=== PATIENT | male | born 1960 | race Caucasian/White ===

== ENCOUNTER 2024-01-31 09:17 | Day surgery (SDC) | payer SELFPAY ==
--- NOTE | 2024-01-30 19:25 | ANES.PREOP_ITS ---
General Info Date of Service Date Performed: 01/31/24 Height: 5 ft 11.5 in Weight: 99.9 kg Body Mass Index (BMI): 30.2 Surgical Procedure: Operation Date: 01/31/24 11:20 Proposed Procedure Side Surgeon p Colonoscopy Saulo Sierra MD Meds Allergies and Home Medications Allergies Allergy/AdvReac Type Severity Reaction Status Date / Time No Known Allergies Allergy Verified 01/31/24 09:32 Home Medication Medication Instructions Recorded Unknown [No Known Home Meds] 12/03/20 Current Visit Medications: Current Medications Generic Name Dose Route Start Last Admin Trade Name Freq PRN Reason Stop Dose Admin Ringer's Solution 1,000 mls @ 80 mls/hr 01/31/24 06:00 IV 02/29/24 23:59 INFUSION ALVIN IV Miscellaneous Supplies 1 each 01/31/24 06:00 Iv Access IV 02/29/24 23:59 DIRECTED ALVIN Sodium Chloride 0 ml 01/31/24 06:00 Normal Saline Flush 10 Ml Syr IV 02/29/24 23:59 PRN PRN Sodium Chloride 0 ml 01/31/24 06:00 Normal Saline 10 Ml Vial IJ 02/29/24 23:59 DIRECTED PRN Sterile Water 0 ml 01/31/24 06:00 Water,Injection,Sterile 10 Ml Vial IJ 02/29/24 23:59 DIRECTED PRN PFSH Active Problems Active Problems: Problem Status Onset Code Tubulovillous adenoma ~2012 D36.9 Cervical kyphosis M40.202 Hyperlipidemia, unspecified 07/02/12 E78.5 Medical History Medical History Adenoma of large intestine (04/05/13) 03/2013 colonoscopy (tubular adenoma) Surgical History Surgical History H/O colonoscopy with polypectomy Status post Achilles tendon repair (~2007) [facility] Tobacco Smoking/Tobacco Use Status: Never Alcohol Alcohol Intake: current Alcohol intake frequency: 3 or more drinks per day Alcohol type: beer and hard liquor Details: 3-5 mixed drinks with liquor/ day Substance Use Substance use: Occasionally Substance use type: marijuana Vital Signs and Lab Results Vital Signs Most Recent Vital Signs in EMR: Temp Pulse Resp BP Pulse Ox 36 C L 72 16 126/85 99 01/31/24 09:19 01/31/24 09:19 01/31/24 09:19 01/31/24 09:19 01/31/24 09:19 Lab Results Blood Type / Crossmatch: No Data to Display Complete Blood Count: No Data to Display Complete Metabolic Panel: No Data to Display Liver Function Panel: No Data to Display Coagulation Panel: No Data to Display Cardiac Panel: No Data to Display Arterial Blood Gas: No Data to Display Venous Blood Gas: No Data to Display Pancreas Panel: No Data to Display Thyroid Panel: No Data to Display Infectious Disease: No Data to Display Blood Cultures: No Data to Display Toxicology Panel: No Data to Display Anesthesia Assessment and Plan Anesthesia History Personal History: No History of Anesthesia Complications Family History: No Family History of Anesthesia Complications Exercise Tolerance Exercise Tolerance: Metabolic Equivalents>4 Pertinent Negatives Pertinent Negatives: No Symptoms of GERD (Hx, states self-resolved around 10 years ago), No Major Cardiovascular Symptoms or Complaints, No Major Pulmonary Symptoms or Complaints and No History of CVA/TIA Cardiac & Pulmonary Exam Cardiac Exam: Normal S1/S2 Heart Sounds Pulmonary Exam: Clear Bilateral Breath Sounds Implantable Cardiac Device Does patient have a Pacemaker or an ICD?: No Airway Exam Known Difficult Airway: No Mallampati Class: 3 Mouth Opening: Narrow (< 3cm) Thyromental Distance: Greater than 3 cm Neck Range of Motion: Full ROM Neck Circumference: Normal Teeth Condition: Normal Dentition and Generalized Poor Dentition ASA Classification ASA Score: ASA 2 Emergency Case?: No NPO Status NPO Status: NPO Clears >2 hours, Solids >8 hours Anesthesia Plan Resuscitation Status: Full Code Anesthesia Technique: General Anesthesia Airway Planned: Natural Airway Monitors Used: Standard Monitors Preoperative Comments:: 63 yo male for colo. Sig PMHX: cervical kyphosis. never smoker, daily EtOH (3-5 drinks/day weekdays). occ cannabis.
--- NOTE | 2024-01-30 19:49 | W.PM.DSUDISC ---
Date of service: 01/31/24 Time of Service: 11:56 Discharge Plan Disposition Patient Disposition: Home Condition: Good Discharge Details Reason For Visit: screening colonoscopy Attending Provider: Saulo Sierra Primary Care Provider: Sharmila Hernandez Home Meds and New Rx's Prescriptions: No Action No Known Home Meds Discharge Instructions Instructions: Colon polyps, Diverticulosis, High-fiber diet Additional Instructions: Henri, we were able to complete your colonoscopy today without any difficulty. Your prep was excellent and I could see everything fine. I did find and remove 3 polyps today. All were quite small. These will be sent off for testing, and once I know the nature of the polyps, I will be in touch with recommendations for the timing of your next colonoscopy. Incidentally, you also have some diverticulosis as well. Diverticula are little weak spots in the muscular part of the colon wall. They can get infected or inflamed. If that happens, we call it diverticulitis. It is typically experienced as sharp pain, usually on the left lower side of the abdomen. It is often times accompanied by fevers and not feeling well. Most of the time patients are treated with antibiotics during these episodes. I hope you are is never bother you. I have attached some general information here about colorectal polyps, as well as diverticulosis. If you have any questions in the meantime, please do not hesitate to call. 1. If tolerated, consume a soft, low fiber diet for 1-2 days. 2[address] Do not drive, drink alcohol, operate machinery, make critical decisions, or do activities that require coordination or balance for 24 hours. 3. Because air was put into your colon during the procedure, expelling air from your rectum (passing gas or farting) is normal. 4. You may not have a bowel movement for 1-3 days because of the colonoscopy prep. This is normal. 5. Go directly to the emergency room if you notice any of the following: Develop chills (warm to touch), or if you have a thermometer and your temperature is above 101 Difficulty breathing or difficultly swallowing Persistent vomiting Severe abdominal pain, other than gas cramps Severe chest pain Black, tarry stools Any bleeding ? exceeding one tablespoon 6. Call your physician if the site where your intravenous was started becomes red, swollen, painful, and warm to touch. 7. Your physician has reviewed your pre-procedure medications. Please continue to take those medications as previously ordered. You will be given specific information/education regarding any changes to your medications before leaving. Activity:: Activity as Tolerated Diet:: As Tolerated Discharge Orders Discharge Orders: Discharge Order (Routine); Ordered 01/30/24 Ordered By: Saulo Sierra DS: Diagnosis Discharge Diagnosis (1) Encounter for screening colonoscopy: Status: Acute Asessment and Plan: Follow-up on polypectomy results
--- NOTE | 2024-01-30 19:50 | W.COLOREPORT ---
Date of service: 01/31/24 Time of Service: 11:58 Colonoscopy Report Date of procedure: 01/31/24 Pre-op diagnosis general: screening colonoscopy Post-op diagnosis procedure note: other (Diverticulosis, colon polyps) Procedure: colonoscopy with polypectomy Surgeon: Saulo Sierra Anesthesia Type: General:No Airway Estimated blood loss (mL): 5 Pathology: other (0.25 cm cecal polyp, 0.25 cm polyp at 30 cm, 0.25 cm polyp at 20 cm) Complications: None Disposition: same day Indications: Henri is a 63 year old man with a history of adenomatous polyps who needs his next screening colonsocopy Prep: Miralax/Dulcolax Procedure Start Time: 11:22 Procedure End Time: 11:42 Retraction Time: 16 Findings: Sigmoid diverticulosis, 0.25 cm cecal polyp, 0.25 cm polyp at 30 cm, 0.25 cm polyp at 20 cm Procedure Description: After the induction of anesthesia, and with the patient in left lateral decubitus position, I began by performing an external anorectal exam.? Perineum and skin were normal, as was the anal verge.? There was no evidence of external hemorrhoids.? Next, I performed a digital rectal exam.? I did not appreciate any abnormal findings.? Next, I advanced a colonoscope into the rectal vault.? I performed retroflexion.? This appeared normal.? Using insufflation, I then advanced the colonoscope beyond the rectal folds and into the sigmoid colon before advancing towards the cecum.? In the cecum, just a few centimeters away from the order this of the appendix, was a 0.25 cm flat polyp. I removed this with cold forceps without any significant bleeding. The scope was noted to be in the cecum by identification of the ileocecal valve and appendiceal orifice.? I then began withdrawing the colonoscope using repeated irrigation as necessary for full evaluation of the colonic mucosa. Around 30 cm from the anal verge I identified a 0.25 cm polyp. ?It appeared flat in character. ?I was able to remove this with a cold forcep polypectomy. ?I examined the site, and there was minimal bleeding. I found another 0.25 cm polyp at 20 cm from the anus. This was also flat, and also removed with cold forceps. Once the scope was withdrawn to the level of the rectum, great care was taken to examine portions of the rectal folds.? Finally, the scope was withdrawn and the patient was brought to the same-day surgery recovery unit as the anesthetic wore off. ?The findings and instructions were shared with the patient prior to discharge. [place] Bowel Prep [place] Bowel Prep Right Colon: 3 Left Colon: 3 Transverse Colon: 3 Total Score: 9
[2024-01-31 09:19] VITALS: BP 126/85; PULSE 72; RESP 16; TEMP 36; O2SAT 99
[2024-01-31] MEDS: Lactated Ringers 1,000 ML 80 ML IV (09:53)
[2024-01-31 10:53] VITALS: BMI 30.2
--- NOTE | 2024-01-31 11:28 | BOWEL_PTH ---
PATIENT: Henri Upton LOC: [facility] U#:[id number] AGE/SX: 63/M ROOM: RE01/31/[address]: Saulo Sierra MD : 1960 BED: DIS: 01/31/2024 SPEC #: [id number] RECD: 01/31/24 13:06 STATUS: LITZY REJosy #: [id number] ESHA: 01/31/24 11:[address]: Saulo Sierra DEPT: Surgical Specimen RECD BY: Oumou Castaneda ENTERED: 01/31/24 13:08 SP TYPE: Bowel OTHR DR: Sharmila Hernandez DO Tissues: 1 - BIOPSY BOWEL 2 - BIOPSY BOWEL 3 - BIOPSY BOWEL Procedures: GROSS AND MICRO LEVEL 4 Comments: [id number]
[2024-01-31 11:46] VITALS: BP 116/80; PULSE 71; RESP 16; TEMP 36.1; O2SAT 95
[2024-01-31 12:17] VITALS: BP 121/81; PULSE 78; RESP 16; TEMP 36.1; O2SAT 98
--- NOTE | 2024-01-31 12:24 | W.ANESPOSTOP ---
Postoperative Evaluation Date, Time and Location Date Performed: 01/31/24 Time Performed: 12:24 Patient Location: Day Surgery Unit Vital Signs Most Recent Imported Vital Signs: Most Recent Vital Signs Temp Pulse Resp BP Pulse Ox 36.1 C L 78 16 121/81 98 01/31/24 12:17 01/31/24 12:17 01/31/24 12:17 01/31/24 12:17 01/31/24 12:17 Pain Score Most Recent Pain Score: Most Recent Pain Score Pain Level 0 01/31/24 12:17 Assessment Mental Status: Awake (Alert & Oriented to Patient Baseline) Airway and Respiratory Function: Patent airway with normal (patient baseline) respiratory exam Cardiovascular Function: Hemodynamically Stable Hydration Status: Adequately Hydrated Nausea & Vomiting: No Nausea or Vomiting Pain: Pt. Denies Any Pain Peripheral Nerve Block: Patient did not receive a nerve block
== END 2024-01-31 12:30 | disposition home or self-care (01) ==
LOC: SUR 09:18
PROVIDERS: PCP Student in an Organized Health Care Education/Training Program; Visit Provider Surgery
PROC: 0DJD8ZZ Inspection of Lower Intestinal Tract, Via Natural or Artificial Opening Endoscopic (ICD-10-PCS; CPT 45378; principal; 2024-01-31 11:15)
DX: Z12.11 Encounter for screening for malignant neoplasm of colon (principal); D12.0 Benign neoplasm of cecum
CPT/HCPCS: 45380; 88305; J2704

== ENCOUNTER 2024-03-29 20:48 | Emergency (ER) | payer SELFPAY ==
[2024-03-29] VITALS (17 sets, daily range): BP systolic 123–174; BP diastolic 78–103; PULSE 75–104; RESP 16–18; TEMP 36.6–36.7; O2SAT 91–97
--- NOTE | 2024-03-29 20:30 | RT.EKG_ITS ---
APPROVED REPORT Exam: Resting ECG Reason for Exam: Syncope Patient Location: E HR:90 bpm ECG Measurements Heart Rate 90 AXIS LA 145 P 67 QRSd 98 QRS 74 QT 356 T 40 QTc 436 Conclusion Sinus rhythm...normal P axis, V-rate 60- 99 Probable left atrial enlargement...P >50mS, <-0.10mV V1 sinus rhythm, normal axis, normal intervals, non ischemic
--- NOTE | 2024-03-29 20:45 | DI.RAD_ITS ---
Exam(s) XR PORTABLE CHEST AP EXAM: XR PORTABLE CHEST AP CLINICAL HISTORY: Syncope, R/O Aspiration. TECHNIQUE: 2D digital imaging was performed. COMPARISON: CR CHEST 2 VIEWS PA,LAT from 06/04/2015 FINDINGS: Single AP portable view. Heart size is upper normal. The mediastinum is not widened. Lungs are clear. No infiltrates nor obvious pleural effusions. IMPRESSION: No acute pulmonary findings on this single AP portable view of the chest. I note this patient had a left lung pneumonia in May 2015. Lungs are presently clear. DATA REPOSITORY: RADIATION DOSE DELIVERED:
--- NOTE | 2024-03-29 20:57 | W.ED.GENAD ---
Discharge Plan Disposition Patient Disposition: Home Condition: Stable Discharge Details Clinical Impression: Syncope and collapse Primary Care Provider: Unknown,Unknown ED Provider: Brittney Giraldo Home Meds and New Rx's Prescriptions: No Action No Known Home Meds Discharge Instructions Instructions: Syncope (Fainting) (DC) Additional Instructions: No evidence of heart attack today, no pneumonia. Please keep yourself hydrated. Return to the ER for any worsening dizziness, headache, blurry vision chest pain shortness of breath vomiting or any concerns. Follow up with primary care provider in 3-5 days. Return to ED sooner if any worsening or concerns. Referrals: Primary Care Provider [Outside] - 3 days HPI General Mode of arrival: EMS. Date/Time Provider Initiated Documentation: 03/29/24 20:56. Limitations to Documentation: no limitations. Information obtained by: patient, EMS, RN notes reviewed and old records reviewed. HPI Narrative: 64-year-old male presents to the ER via EMS with a chief complaint of syncopal episode which was witnessed while at a restaurant. Patient was eating pizza after having a few drinks and having some marijuana Gummies began vomiting during the syncopal episode. Patient denies any chest pain upon arrival he was alert and oriented x 4. He does have emesis noted on him. He denies any complaints, he reports that he had been out in the sun all day and was dehydrated and not drinking enough fluids. No significant past medical history. Related Data Home Medications ?Medication ?Instructions ?Recorded ?Confirmed Unknown [No Known Home Meds] 12/03/20 03/29/24 Allergies Allergy/AdvReac Type Severity Reaction Status Date / Time No Known Allergies Allergy Verified 03/29/24 20:57 General Stated Complaint: [id number] SHA: 3 Review of Systems All systems reviewed & are unremarkable except as noted in HPI and below Cardiovascular Cardiovascular: Reports syncope Gastrointestinal Gastrointestinal: Reports as per HPI and Reports vomiting Neurologic Neurologic: Reports syncope Exam Narrative Exam Narrative: Constitutional: Alert and oriented x3. Appears stated age. Normal body habitus. Head: Normocephalic, no trauma. Eyes: Pupils PERRL, Red reflex noted, EOM's intact. Eyelids symmetrical without lesions, discharge, or swelling. ENT: Bilateral TM's WNL, External ear normal to inspection, no mastoid TTP, swelling, or erythema, Nasal turbinates WNL, no nasal discharge. Normal dentition, Posterior pharynx WNL, no exudate. Chest: RRR, Normal S1, S2, distal pulses intact. Resp: Lungs clear to auscultation bilaterally, no wheezes, rales, or rhonchi. Abdomen: Soft, non-distended, Normoactive bowel sounds all 4 quads. Musculoskeletal: Normal gait, Moves all 4 extremities without difficulty. Skin: No suspicious rashes or lesions. Capillary refill less than 2 sec. Neurologic: Cranial nerves II-XII intact. Alert and oriented x 3. Motor: No deficits noted. Sensory: Intact bilaterally all 4 extremities. Hematologic/Lymphatic: No ecchymosis, no lymphadenopathy. Course Vital Signs Vital signs: Vital Signs Temperature 36.7 C 03/29/24 20:49 Pulse 97 H 03/29/24 20:49 Respiratory Rate 16 03/29/24 20:49 Blood Pressure 157/90 H 03/29/24 20:49 Pulse Oximetry 95 03/29/24 20:49 Temperature 36.7 C 03/29/24 20:49 Temperature Source Skin 03/29/24 20:49 Pulse 97 H 03/29/24 20:49 Respiratory Rate 16 03/29/24 20:49 Blood Pressure 157/90 H 03/29/24 20:49 Blood Pressure Position Sitting 03/29/24 20:49 Pulse Oximetry 95 03/29/24 20:49 Oxygen Delivery Method Room Air 03/29/24 20:49 Oxygen Flow Rate 0 03/29/24 20:49 Pain Level 0 03/29/24 20:49 Medical Decision Making 64-year-old male presents to the ER via EMS with a chief complaint of syncopal episode which was witnessed while at a restaurant. Patient was eating pizza after having a few drinks and having some marijuana Gummies began vomiting during the syncopal episode. Patient denies any chest pain upon arrival he was alert and oriented x 4. He does have emesis noted on him. He denies any complaints, he reports that he had been out in the sun all day and was dehydrated and not drinking enough fluids. No significant past medical history. Workup ordered including EKG, serial troponins, chest x-ray normal saline, ethyl alcohol level. On patient reevaluation he reports he feels fine. He has no complaints at this time. His is at bedside. CBC shows white blood cell count of 12.98, CMP shows anion gap of 13.1 glucose 115, initial troponin less than 50. Ethyl alcohol less than 3.0 lipase 20. Chest x-ray within normal limits. CT head canceled due to no focal neurodeficits noted patient denies any headache blurry vision. Differential diagnosis includes but limited to CAD, vasovagal, dehydration, heat exhaustion, seizure however this is less likely. Patient discharged into the care of his , strict return instructions discussed. Patient remained hemodynamically stable alert and oriented x 4 throughout interval stay. This text was generated using [employer] system, please disregard any oddities of phrase or misspellings. Medical Records Medical records reviewed: Yes I reviewed the patient's medical records. Lab Data Lab results reviewed: Yes I reviewed the patient's lab results. Labs: Laboratory Tests Range/Units 03/29/24 03/29/24 20:14 23:45 WBC (4.4-10.8) 10^3/uL 12.98 H RBC (4.36-5.78) 10^6/uL 4.85 Hgb (13.5-17.5) g/dL 16.2 Hct (40.0-50.0) % 47.4 MCV (80-95) fL 98 H MCH (27.0-33.0) pg 33.4 H MCHC (32.0-36.0) % 34.2 RDW (11.8-14.1) % 12.5 Plt Count (130-400) 10^3/uL 343 MPV (8.0-11.0) fL 9.4 Immature Gran % % 0.8 Neutrophils % % 61.5 Lymphocytes % % 26.5 Monocytes % % 8.9 Eosinophils % % 1.5 Basophils % % 0.8 Nucleated RBC % (0.0-0.3) % 0.0 Absolute Neutrophils (1.2-6.7) 10^3/uL 7.98 H Absolute Lymphocytes (1.2-3.4) 10^3/uL 3.44 H Absolute Monocytes (0.1-0.8) 10^3/uL 1.16 H Absolute Eosinophils (0.0-0.7) 10^3/uL 0.19 Absolute Basophils (0.0-0.2) 10^3/uL 0.10 Sodium (136-145) mmol/L 139 Potassium (3.5-5.1) mmol/L 3.5 Chloride (98-107) mmol/L 101 Carbon Dioxide (21.0-32.0) mmol/L 24.9 Anion Gap (3-11) mmol/L 13.1 H BUN (7-18) mg/dL 10 Creatinine (0.70-1.30) mg/dL 1.3 Est GFR (CKD-EPI 2020) (mL/min/1.73m2) 61.73 Glucose (74-106) mg/dL 115 H Calcium (8.5-10.1) mg/dL 9.6 Magnesium (1.8-2.4) mg/dL 2.3 Total Bilirubin (0.2-1.0) mg/dL 0.92 AST (15-37) U/L 25 ALT (16-63) U/L 40 Alkaline Phosphatase (46-116) U/L 76 Troponin I (< or =60) ng/L < 50 Cancelled Total Protein (6.4-8.2) g/dL 7.4 Albumin (3.4-5.0) g/dL 4.3 Lipase (16-77) U/L 20 Ethyl Alcohol (<10) mg/dL < 3.0 Quality:SDOH Health Related Social Needs: No Data to Display PFSH All Active Problems (Updated 03/29/24 @ 23:28 by Brittney Giraldo NP) Syncope and collapse (Acute) Encounter for screening colonoscopy (Acute) Tubulovillous adenoma (Acute ~2012) 01/2024-recall 5 yrs Cervical kyphosis (Acute) Hyperlipidemia, unspecified (Acute 07/02/12) Medical History Tubular adenoma of colon (~01/2024) Hyperplastic colon polyp (~01/2024) Adenoma of large intestine (04/05/13) 03/2013 colonoscopy (tubular adenoma) Surgical History H/O colonoscopy with polypectomy Status post Achilles tendon repair (~2007) [facility] Family History Father Colon cancer Mother Cancer Breast/lung/throat ?primary Social History Smoking/Tobacco Use Status: Never Smoking risk assessment performed?: Yes Alcohol Intake: current Alcohol Intake frequency: 3 or more drinks per day Alcohol type: beer and hard liquor Details: 3-5 mixed drinks with liquor/ day Drug use: Occasionally Substance use type: marijuana Adopted: No Household members: none Housing: house Do you need help understanding health information?: Rarely current occupation: [email or web address] Sexually active: No Do you think of yourself as: straight/heterosexual Current gender identity: male What is your relationship status?: Panel score (0-1 are the most socially isolated patients): 0 Do you feel safe at home: Yes Do you feel safe in your relationship?: Yes
[2024-03-29 21:10] LABS: Absolute Lymphocyte Count 3.44 10^3/uL (1.2-3.4); Basophils % 0.8 %; Eosinophils % 1.5 %; HCT 47.4 % (40.0-50.0); HGB 16.2 g/dL (13.5-17.5); Immature Grans % 0.8 %; Lymphocytes % 26.5 %; MCH 33.4 pg (27.0-33.0); MCHC 34.2 % (32.0-36.0); MCV 98 fL (80-95); MPV 9.4 fL (8.0-11.0); Monocytes % 8.9 %; Neutrophils % 61.5 %; Platelet Count 343 10^3/uL (130-400); RBC 4.85 10^6/uL (4.36-5.78); RDW 12.5 % (11.8-14.1); RDW-SD 45.1 fL; WBC 12.98 10^3/uL (4.4-10.8)
[2024-03-29 21:11] LABS: Absolute Eosinophil Count 0.19 10^3/uL (0.0-0.7); Absolute Monocyte Count 1.16 10^3/uL (0.1-0.8); Absolute Neutrophil Count 7.98 10^3/uL (1.2-6.7)
--- NOTE | 2024-03-29 21:12 | NUR.NOTE ---
It took approximately 10 minutes for the paint line production supervisor to assist in transferring patient from the ambulance stretcher to our stretcher as they were giving report, therefore there was a delay in the amount of time getting the EKG done.
[2024-03-29] MEDS: Normal Saline 1,000 ML 1000 ML IV (21:13)
[2024-03-29 21:36] LABS: ALT 40 U/L (16-63); AST 25 U/L (15-37); Albumin 4.3 g/dL (3.4-5.0); Alkaline Phosphatase 76 U/L (46-116); Anion Gap 13.1 mmol/L (3-11); BUN 10 mg/dL (7-18); Bilirubin, Total 0.92 mg/dL (0.2-1.0); CO2 24.9 mmol/L (21.0-32.0); CREATININE 1.3 mg/dL (0.70-1.30); Calcium 9.6 mg/dL (8.5-10.1); Chloride 101 mmol/L (98-107); Estimated GFR 61.73 (mL/min/1.73m2); Glucose 115 mg/dL (74-106); Lipase 20 U/L (16-77); Magnesium 2.3 mg/dL (1.8-2.4); Potassium 3.5 mmol/L (3.5-5.1); Sodium 139 mmol/L (136-145); Total Protein 7.4 g/dL (6.4-8.2); Troponin I < 50 ng/L (< or =60)
[2024-03-29 21:46] LABS: ETHANOL BLOOD < 3.0 mg/dL (<10)
--- NOTE | 2024-03-29 21:50 | DI.VRAD_ITS ---
PROCEDURE INFORMATION: Exam: XR Chest Exam date and time: 03/29/2024 9:21 PM Age: 64 years old Clinical indication: Other: Syncope, R/O aspiration TECHNIQUE: Imaging protocol: Radiologic exam of the chest. Views: 1 view. COMPARISON: No relevant prior studies available. FINDINGS: Lungs: Unremarkable. No consolidation. Pleural spaces: Unremarkable. No pleural effusion. No pneumothorax. Heart/Mediastinum: Unremarkable. No cardiomegaly. Bones/joints: Degenerative features of the thoracic spine. IMPRESSION: 1. No acute findings. 2. Clear lungs and pleural space. Dictated and Authenticated by: Vincent Avina MD. Ordering:PIERRE Lugo MD
--- OUTSIDE RECORDS SUMMARY | 2024-03-29 23:22 | XMS_ITS | Encounter Summary ---
Author Organization [facility] Address [address] [place] [address] Care Team Providers Care Tubing Tester Name Role Phone Unavailable Primary Care Provider Unavailabl e Encounter Details Date Type Department Care Team (Late st Contact Info) Description 11/17/2005 Results Only [facility] [address] [place] [address] Venkata Sullivan MD [address] [place] [id number] Social History Tobacco Use Types Packs/Day Years Used Date Smoking Tobacco: Never Assessed Sex and Gender Information Value Date Recorded Sex Assigned at Not on file Gender Identity Not on file Sexual Orientation Not on file documented as of this encounter Plan of Treatment Not on file documented as of this encounter Procedures Procedure Name Priority Date/Time Associated Diagnosis Comments SURGICAL PATHOLOGY Routine 11/17/2005 0:00 EDT documented in this encounter Results * SURGICAL PATHOLOGY (11/17/2005 0:00 EDT) Pathology Report: SURGICAL PATHOLOGY REPORT Reports generated via electronic interface contain original data; however they are lacking the format of the original report. Caution should be taken when reading/interpreti ng unformatted reports. Name: ? NATASHA SCHAFER ? Accession #: ? [id number] ? : ? 1960 (Age: 45) ??M ? Collect Date: ? 11/17/2005 ? Location: ? [facility] ? Receive Date: ? 11/17/2005 ? Provider: YESSICA SULLIVAN MD Copy to: AUGUSTUS ARAIZA MD ? Final Pathologic Diagnosis: A. ?Colon, hepatic flexure, polyp, biopsy: 1. ?Tubular adenoma (2 pieces). ? - No high grade dysplasia. 2. ?Colonic mucosa (1 piece). B. ?Colorectum, 10 cm, polyp, biopsy: 1. ?Polypoid fragment of colorectal mucosa (1 piece) with surface hyperplastic change. ??See comment. Comment: ? Deeper levels have been examined on specimen (B). ??(Dr. Christy)/[facility] Document reviewed and electronically signed by: Paul Iverson MD Report ??Date: 11/21/2005 15:58 By the signature above, the attending physician certifies that he/she has personally conducted a gross and/or microscopic examination of the described specimens and rendered or confirmed the above diagnosis. Specimen(s) Received: A. ?Polyp @ hepatic flexure (#1) B. ?Polyp @ 10 cm (#2) Clinical History: ? Rectal bleeding; Dad-colon CA Gross Description: ? Received in Hollande's fixative labelled [place] and polyp at hepatic flexure are three tissues that are each 0.2 x 0.2 x 0.2 cm, submitted intact as (A). Received in Hollande's fixative labelled [place] and polyp @ 10 cm is a single 0.3 x 0.2 x 0.1 cm tissue, submitted intact as (B). (Dr. Christy)/mpl ?? End of Report [facility] 11/17/2005 11/17/2005 15: 23 EDT Venkata Sullivan MD PATHOLOGY ORDERABLES Performing Organization Address City/State/[facility] Co de Phone Number [facility] [address] [place] [address] documented in this encounter Visit Diagnoses Not on filedocumented in this encounter
--- OUTSIDE RECORDS SUMMARY | 2024-03-29 23:22 | XMS_ITS | Encounter Summary ---
Author Organization [facility] Address [address] [place] [address] Care Team Providers Care Forming Process Worker Name Role Phone Unknown, Provider Primary Care Provider [phone] Encounter Details Date Type Department Care Team (Late st Contact Info) Description 01/31/2024 Lab Requisition [facility] Pathology & Laboratory Medicine - [address] [address] Saulo Sierra MD [address] [place] [address], [address] [place], [place] [id number] Encounter for screening for malignant neoplasm of colon Social History Tobacco Use Types Packs/Day Years Used Date Smoking Tobacco: Never Assessed Sex and Gender Information Value Date Recorded Sex Assigned at Not on file Gender Identity Not on file Sexual Orientation Not on file documented as of this encounter Plan of Treatment Not on file documented as of this encounter Procedures Procedure Name Priority Date/Time Associated Diagnosis Comments SURGICAL PATHOLOGY Today 01/31/2024 11 :28 EDT Encounter for screening for malignant neoplasm of colon documented in this encounter Results * SURGICAL PATHOLOGY (01/31/2024 11:28 EDT) Note to Patient The following pathology results have been interpreted by your pathologist and may be available to you before your health provider has had the opportunity to review them. Please allow time for your provider to receive these results and explore management options, if applicable. 02/04/2024 16:[address] [facility] Final Diagnosis A. COLON, CECUM, POLYP, BIOPSY: - Tubular adenoma. B. COLON, 30 CMS, POLYP, BIOPSY: - Hyperplastic polyp. C. COLON, 20 CMS, POLYP, BIOPSY: - Hyperplastic polyp. 02/04/2024 16:09 [facility] Attestation By the signature below, the attending physician certifies that they have 1) personally conducted a gross and/or microscopic examination of the described specimen(s), and/or personally interpreted the results of laboratory testing of the described specimen(s), and 2) personally rendered or confirmed the above diagnosis. 02/04/2024 16:09 [facility] at 1609 Clinical History History of colon polyps, family history of colon cancer , diverticulosis; clinical diagnosis code: Z12.11 02/04/2024 16:09 [facility] Gross Description A. Received in formalin labelled with proper patient identification (initials C, D) and cecal polyp are 3 jackson tissue fragments ranging from 0.1 x 0.1 x 0.1 cm to 0.2 x 0.2 x 0.2 cm. Entirely submitted in A1. B. Received in formalin labelled with proper patient identification (initials C, D) and colon polyp @ 30 cm is a jackson tissue fragment, 0.7 x 0.2 x 0.1 cm. Entirely submitted in B1. C. Received in formalin labelled with proper patient identification (initials C, D) and colon polyp @ 20 cm is a jackson tissue fragment, 0.3 x 0.2 x 0.2 cm. Entirely submitted in C1. LOC MARRERO(ASCP) 02/02/2024 7:06 02/04/2024 16:09 [facility] Performing Lab [facility] 02/04/2024 16:09 [facility] Scanned Images 02/04/2024 16:09 [facility] Tissue COLON STRUCTURE / Unknown 01/31/2024 11:28 EDT 01/31/2024 17:22 EDT Tissue specimen (specimen) COLON STRUCTURE / Unknown 01/31/2024 11:28 EDT 01/31/2024 17:22 EDT Tissue specimen (specimen) COLON STRUCTURE / Unknown 01/31/2024 11:28 EDT 01/31/2024 17:22 EDT Saulo Sierra MD PATHOLOGY ORDERABLES [facility] [address] [place] [id number] documented in this encounter Visit Diagnoses Diagnosis Encounter for screening for malignant neoplasm of colon Special screening for malignant neoplasms, colon documented in this encounter Care Teams Forming Process Worker Relationship Specialty Start Date End Date Unknown, Provider, PCP - General 04/09/13 documented as of this encounter
--- OUTSIDE RECORDS SUMMARY | 2024-03-29 23:22 | XMS_ITS | Encounter Summary ---
Author Organization [facility] Address [address] [place] [address] Care Team Providers Care Bleacher [employer] Name Role Phone Unavailable Primary Care Provider Unavailabl e Encounter Details Date Type Department Care Team (Late st Contact Info) Description 04/05/2013 Results Only [facility] Services - [facility] [place] [address] [place], [place] [id number] Julius Joshi, DO [address] [facility] ,[address] [place], [place] [id number] Social History Tobacco Use Types Packs/Day Years Used Date Smoking Tobacco: Never Assessed Sex and Gender Information Value Date Recorded Sex Assigned at Not on file Gender Identity Not on file Sexual Orientation Not on file documented as of this encounter Plan of Treatment Not on file documented as of this encounter Procedures Procedure Name Priority Date/Time Associated Diagnosis Comments SURGICAL PATHOLOGY Routine 04/05/2013 21 :38 EDT documented in this encounter Results * SURGICAL PATHOLOGY (04/05/2013 21:38 EDT) Pathology Report: SURGICAL PATHOLOGY REPORT Reports generated via electronic interface contain original data; however they are lacking the format of the original report. Caution should be taken when reading/interpreti ng unformatted reports. Name: ? NATASHA SCHAEFR ? Accession #: ? [id number] ? : ? 1960 (Age: 53) ??M ? Collect Date: ? 04/05/2013 ? Location: ? [facility] ? Receive Date: ? 04/05/2013 ? Provider: JULIUS JOSHI DO Copy to: AUGUSTUS ARAIZA MD ? Final Pathologic Diagnosis: COLON, 60 CM, POLYP, BIOPSY: - ??Fragments of tubulovillous adenoma(s). Document reviewed and electronically signed by: PAT RED MD Report ??Date: 04/09/2013 09:26 By the signature above, the attending physician certifies that he/she has personally conducted a gross and/or microscopic examination of the described specimens and rendered or confirmed the above diagnosis. Specimen(s) Received: Polyp 60 cm Clinical History: Colon cancer screening; history of polyps; family hx of colon Ca Gross Description: ? Received in formalin labelled with proper patient identification (initials C, D) and 1. polyp 60 cm is a single pink-jackson polypoid tissue (1.0 x 0.8 x 0.7 cm). ??Also received are five jackson-pink tissue fragments (0.2 x 0.2 x 0.2 cm to 0.4 x 0.3 x 0.3 cm). ??The margin of the polypoid tissue is inked blue, the specimen is trisected and entirely submitted in 1. ??The remaining fragments of tissue are entirely submitted in [address] Roque 04/06/2013 10:13 AM End of Report FRANCIA MANCILLA 04/05/2013 21:3 8 EDT 04/05/2013 21:38 EDT Julius Joshi DO PATHOLOGY ORDER TORY FRANCIA MANCILLA [address] [place] [address] documented in this encounter Visit Diagnoses Not on filedocumented in this encounter
--- OUTSIDE RECORDS SUMMARY | 2024-03-29 23:22 | XMS_ITS | Clinical Summary ---
Author Organization [facility] Address [address] [place] [address] Care Team Providers Care Spring Machine Operator Name Role Phone Unknown, Provider Primary Care Provider [phone] Encounters Date Type Department Care Team Description 01/31/2024 Lab Requisition [facility] Pathology & Laboratory Medicine - [facility] [address] [place] [address] Saulo Sierra MD Encounter for screening for malignant neoplasm of colon from Last 3 Months Social History Tobacco Use Types Packs/Day Years Used Date Smoking Tobacco: Never Assessed Sex and Gender Information Value Date Recorded Sex Assigned at Not on file Gender Identity Not on file Sexual Orientation Not on file Plan of Treatment Health Maintenance Due Date Last Done Comments Hepatitis C Screen 1960 RSV Immunization ( o r 60+ Years) (1 - 1-dose 60+ series) 2021 COVID-19 Vaccine (2022-24 season) 2023 Procedures Procedure Name Priority Date/Time Associated Diagnosis Comments SURGICAL PATHOLOGY Today 01/31/2024 11 :28 EDT Encounter for screening for malignant neoplasm of colon from Last 3 Months Results * SURGICAL PATHOLOGY (01/31/2024 11:28 EDT) Note to Patient The following pathology results have been interpreted by your pathologist and may be available to you before your health provider has had the opportunity to review them. Please allow time for your provider to receive these results and explore management options, if applicable. [facility] Final Diagnosis A. COLON, CECUM, POLYP, BIOPSY: - Tubular adenoma. B. COLON, 30 CMS, POLYP, BIOPSY: - Hyperplastic polyp. C. COLON, 20 CMS, POLYP, BIOPSY: - Hyperplastic polyp. 02/04/2024 16:09 [facility] Attestation By the signature below, the attending physician certifies that they have 1) personally conducted a gross and/or microscopic examination of the described specimen(s), and/or personally interpreted the results of laboratory testing of the described specimen(s), and 2) personally rendered or confirmed the above diagnosis. 02/04/2024 16:09 [facility] at 1609 Clinical History History of colon polyps, family history of colon cancer , diverticulosis; clinical diagnosis code: Z12.11 02/04/2024 16:09 [facility] Gross Description A. Received in [...] C1. LOC MARRERO(ASCP) 02/02/2024 7:06 02/04/2024 16:09 [facility] Performing Lab [facility] 02/04/2024 16:09 [facility] Scanned Images 02/04/2024 16:09 [facility] Tissue COLON STRUCTURE / Unknown 01/31/2024 11:28 EDT 01/31/2024 17:22 EDT Tissue specimen (specimen) COLON STRUCTURE / Unknown 01/31/2024 11:28 EDT 01/31/2024 17:22 EDT Tissue specimen (specimen) COLON STRUCTURE / Unknown 01/31/2024 11:28 EDT 01/31/2024 17:22 EDT Saulo Sierra MD PATHOLOGY ORDERABLES [facility] [address] [place] [address] from Last 3 Months Care Teams Spring Machine Operator Relationship Specialty Start Date End Date Unknown, Provider, PCP - General 04/09/13
--- OUTSIDE RECORDS SUMMARY | 2024-03-29 23:22 | XMS_ITS | Referral Summary ---
Author Organization [facility] Address [address] [place] [address] Care Team Providers Care Project Reservoir Engineer Name Role Phone Unknown, Provider Primary Care Provider [phone] Encounters Date Type Department Care Team Description 01/31/2024 Lab Requisition [facility] Pathology & Laboratory Medicine - [facility] [address] [place] [address] Saulo Sierra MD Encounter for screening for malignant neoplasm of colon from Last 3 Months Social History Tobacco Use Types Packs/Day Years Used Date Smoking Tobacco: Never Assessed Sex and Gender Information Value Date Recorded Sex Assigned at Not on file Gender Identity Not on file Sexual Orientation Not on file Plan of Treatment Not on file Procedures Procedure Name Priority Date/Time Associated Diagnosis [...] management options, if applicable. 02/04/2024 16:09 EDT [facility] Final Diagnosis A. COLON, CECUM, POLYP, BIOPSY: - Tubular adenoma. B. COLON, 30 CMS, POLYP, BIOPSY: - Hyperplastic polyp. C. COLON, 20 CMS, POLYP, BIOPSY: - Hyperplastic polyp. 02/04/2024 16:09 [facility] Attestation By the signature below, the attending physician certifies that they have 1) personally conducted a gross and/or microscopic examination of the described specimen(s), and/or personally interpreted the results of laboratory testing of the described specimen(s), and 2) personally rendered or confirmed the above diagnosis. 02/04/2024 16:09 [facility] at 1609 Clinical History History of colon polyps, family history of colon cancer , diverticulosis; clinical diagnosis code: Z12.11 02/04/2024 16:09 [facility] Gross Description A. Received [...] colon polyp @ 30 cm is a jacksno tissue fragment, 0.7 x 0.2 x 0.1 cm. Entirely submitted in B1. C. Received in formalin labelled with proper patient identification (initials C, D) and colon polyp @ 20 cm is a jackson tissue fragment, 0.3 x 0.2 x 0.2 cm. Entirely submitted in C1. LOC MARRERO([facility]) 02/02/2024 7:06 02/04/2024 16:09 [facility] Performing Lab [facility] 02/04/2024 16:09 [facility] Scanned Images 02/04/2024 16:09 [facility] Tissue COLON STRUCTURE / Unknown 01/31/2024 11:28 EDT 01/31/2024 17:22 EDT Tissue specimen (specimen) COLON STRUCTURE / Unknown 01/31/2024 11:28 EDT 01/31/2024 17:22 EDT Tissue specimen (specimen) COLON STRUCTURE / Unknown 01/31/2024 11:28 EDT 01/31/2024 17:22 EDT Saulo Sierra MD PATHOLOGY ORDERABLES [facility] [address] [place] [address] from Last 3 Months Care Teams Project Reservoir Engineer Relationship Specialty Start Date End Date Unknown, Provider, PCP - General 04/09/13
--- OUTSIDE RECORDS SUMMARY | 2024-03-29 23:22 | XMS_ITS | Encounter Summary ---
Author Organization [facility] Address [address] [place] [address] Care Team Providers Care Housefellow Name Role Phone Unavailable Primary Care Provider Unavailabl e Encounter Details Date Type Department Care Team (Late st Contact Info) Description 09/18/2000 Results Only [facility] [address] [place] [address] Venkata Sullivan MD [address] [place] [phone] Social History Tobacco Use Types Packs/Day Years Used Date Smoking Tobacco: Never Assessed Sex and Gender Information Value Date Recorded Sex Assigned at Not on file Gender Identity Not on file Sexual Orientation Not on file documented as of this encounter Plan of Treatment Not on file documented as of this encounter Procedures Procedure Name Priority Date/Time Associated Diagnosis Comments SURGICAL PATHOLOGY Routine 09/18/2000 0:00 EST documented in this encounter Results * SURGICAL PATHOLOGY (09/18/2000 0:00 EST) Pathology Report: SURGICAL PATHOLOGY REPORT Reports generated via electronic interface contain original data; however they are lacking the format of the original report. Caution should be taken when reading/interpreti ng unformatted reports. Name: ? NATASHA SCHAFER ? Accession #: ? [id number] ? : ? 1960 (Age: 40) ??M ? Collect Date: ? 09/18/2000 ? Location: ? [facility] ? Receive Date: ? 09/18/2000 ? Provider: YESSICA SULLIVAN MD Copy to: MARISSA ARAIZA MD ? Final Pathologic Diagnosis: ? Gastro-esophageal junction, biopsies: - Squamous epithelium with reactive changes, suggestive of reflux esophagitis. See comment. Comment: ? There is a slight basal cell hyperplasia as well as elongation of papillae. No definitive leukocytes are identified within the epithelium. ??These features are suggestive of reflux esophagitis. ??No glandular epithelium is present. ??(Dr. Fitch)/kena Document reviewed and electronically signed by: DOMINICK FITCH MD Report ??Date: 09/20/2000 15:59 By the signature above, the attending physician certifies that he/she has personally conducted a gross and/or microscopic examination of the described specimens and rendered or confirmed the above diagnosis. Specimen(s) Received: ? EG junction Clinical History: ? Heartburn, HH, R/O H. pylori Gross Description: ? Received in Hollande' s fixative labelled [place] and EGJ are three fragments of ragged looking tissue which vary in size from 0.6 x 0.2 x 0.2 cm to 0.3 x 0.3 x 0.2 cm. ??Entirely submitted in one cassette. ??(Kehinde Villar)/kena End of Report FRANCIA MANCILLA 09/18/2000 09/18/2000 15: 44 EST Venkata Sullivan MD PATHOLOGY ORDERABLES FRANC[facility] MANCILLA [address] [place] [address] documented in this encounter Visit Diagnoses Not on filedocumented in this encounter
== END 2024-03-31 15:06 | disposition home or self-care (01) ==
LOC: ER 23:29 → RED 23:39
PROVIDERS: Emergency Provider Registered Nurse Emergency
DX: R55 Syncope and collapse (principal); R11.10 Vomiting, unspecified; E78.5 Hyperlipidemia, unspecified
CPT/HCPCS: 80053; 83690; 93005; 99285; 71045; 80320; 83735; 84484; 85025; 93010; 99284

== ENCOUNTER 2024-11-16 22:29 | Emergency (ER) | payer SELFPAY ==
[2024-11-16 22:36] VITALS: BP 165/89; PULSE 70; RESP 18; TEMP 36.7; O2SAT 95
[2024-11-16 22:39] VITALS: BP 165/89; PULSE 73; RESP 18; TEMP 37.1; O2SAT 95
--- NOTE | 2024-11-16 23:19 | ED.GENADUL_ITS ---
Discharge Plan Disposition Patient Disposition: Home Condition: Good Discharge Details Clinical Impression: Foreign body of external eye, right, Corneal rust ring of right eye Primary Care Provider: Unknown,Unknown ED Provider: Gio Sparrow Home Meds and New Rx's Prescriptions: No Action No Known Home Meds Discharge Instructions Instructions: Foreign Body in Eye ED Additional Instructions: At this time the foreign body has been removed, please follow-up closely with ophthalmology for reassessment in the next few days. Please apply the erythromycin ointment to the affected eye 2-3 times per day. Once this runs out, please use a lubricating eyedrop in the affected eye every night right before you go to sleep, as well as once or twice per day as needed. Your tetanus has been updated today. If you notice any worsening of your symptoms, or any new symptoms such as vomiting, diarrhea, fever, chills, shortness of breath, chest pain, numbness, weakness, or fainting , please return immediately to the emergency department for reevaluation. Please follow up with your primary care provider as soon as possible for reassessment and reevaluation. As always, it was a pleasure participating in your medical care today. Referrals: [facility] [Outside] HPI General Date/Time Provider Initiated Documentation: 11/16/24 22:35 . HPI Narrative: This is a pleasant 64-year-old male with a past medical history of high cholesterol, who presents today for evaluation of right eye pain. 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 When he woke up this morning he noticed sensation of something in his eye. It is continued throughout the day. He denies fever or chills. No history of glaucoma. He denies any trauma to the eye. Pain is made worse with moving his eye and looking around. Last tetanus shot was in 2006. He does not wear contact lenses. No other complaints at this time Related Data Home Medications ?Medication ?Instructions ?Recorded ?Confirmed Unknown [No Known Home Meds] 12/03/20 11/16/24 Allergies Allergy/AdvReac Type Severity Reaction Status Date / Time No Known Allergies Allergy Verified 11/16/24 22:41 General Stated Complaint: EyeProblem SHA: 3 Exam Narrative Exam Narrative: 1.Const: Well-nourished, Well-developed, appearing stated age 2.Eyes: Right eye: Eye: Conjunctival injection noted. EOMI, PERRL, Peripheral vision intact. No nystagmus. No clinical signs of septal/orbital cellulitis, no redness around the eye, no proptosis. No hyphema, no signs of trauma around the eye, no periorbital emphysema. No sluggishness of the pupil. No ophthalmoplegia. No afferent pupillary defect. Fluorescein exam is positive for corneal abrasion 4 o'clock position with a small rust/metal fragment being noted, negative Saira sign. Visual acuity as documented in chart. Eversion of the upper and lower lid shows no other foreign body. Patient's left eye is unremarkable with no foreign bodies, negative Saira's sign. No other abnormalities. 3.ENT: Atraumatic external nose and ears. Moist MM. Neck: Symmetric, trachea midline, No thyromegaly. 4.CVS: +S1/S2, Peripheral pulses 2+ and equal in all extremities. Brisk capillary refill in all extremities. 5.RESP: Unlabored respiratory effort. Clear to auscultation bilaterally. No wheezes rales or rhonchi 6.GI: Soft, Nontender/Nondistended, No hepatosplenomegaly. No guarding or rebound. 7.MSK: Normocephalic/Atraumatic, Extremities w/o deformity or ttp No cyanosis or clubbing, Normal movement of all extremities 8.Skin: Warm, Dry. No rashes or lesions. 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 Sensation grossly intact, no focal neurologic deficits. 10.Psych: (AAO) x3. Appropriate mood and affect Course Vital Signs Vital signs: Vital Signs Temperature 36.7 C 11/16/24 22:36 Pulse 70 11/16/24 22:36 Respiratory Rate 18 11/16/24 22:36 Blood Pressure 165/89 H 11/16/24 22:36 Pulse Oximetry 95 11/16/24 22:36 Temperature 37.1 C 11/16/24 22:39 Temperature Source Oral 11/16/24 22:39 Pulse 73 11/16/24 22:39 Respiratory Rate 18 11/16/24 22:39 Blood Pressure 165/89 H 11/16/24 22:39 Pulse Oximetry 95 11/16/24 22:39 Oxygen Delivery Method Room Air 11/16/24 22:39 Oxygen Flow Rate 0 11/16/24 22:36 Pain Level 7 11/16/24 22:39 Procedure Foreign Body Removal Date of Procedure: 11/16/24. Time of procedure: 23:00 Provider that performed the procedure: Gio Dee Time Out Performed: Yes Patient Consented: Verbally Ultrasound: Not used Location of procedure: Right eye Evidence of corneal penetration: No. Foreign body: metal and other (Rust). Procedure performed under: direct visualization with magnification. Post-procedure medication: ophthalmic antibiotic and topical anesthetic. Patient tolerated procedure: well and no complications. Procedure Description/Note: There was evidence of a small rust foreign body in the 3 o'clock position at the edge of the pupil for the patient's right eye. Foreign body and rust ring was removed using a 25-gauge needle. Patient tolerated this well. Medical Decision Making This is a pleasant 64-year-old male with a past medical history of high cholesterol, who presents today for evaluation of right eye pain. 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 When he woke up this morning he noticed sensation of something in his eye. It is continued throughout the day. He denies fever or chills. No history of glaucoma. He denies any trauma to the eye. Pain is made worse with moving his eye and looking around. Last tetanus shot was in 2006. He does not wear contact lenses. No other complaints at this time Exam demonstrates positive uptake in the right eye with a small rust fragment being noted. Negative Saira's sign. No other evidence of injury. Eversion of the upper and lower lid shows no signs of residual foreign body. Will remove foreign body with needle, monitor closely and reassess. Foreign body was removed with TB size needle. Rust ring was removed. Patient tolerated this well. Small minimal component of rust ring was still present at the central aspect where the foreign body had been, however it was felt that if continued removal of corneal epithelium was performed, this could cause prolonged damage. Decision was made to not remove that small/minuscule punctate dot. All of the other surrounding components of the rust ring and the foreign body itself were removed. Left eye demonstrates no abnormalities. Patient tolerated procedure well. Tetanus was updated. Erythromycin ointment was placed. Recommend artificial tears at home and continue erythromycin for the next [address] referral with Dr[address] Rowe office. Discussed red flags for which to return. I have extensively reviewed the treatment plan and discharge instructions with the patient and their family. I have addressed all patient concerns at this time. The patient and family was made aware of what symptoms to monitor for that would warrant a return to the emergency department. Discussed the plan with the patient and family, they demonstrate verbal understanding and agreement with our assessment and plan at this time. The documentation in this chart was dictated using [employer] dictation software. Please excuse any dictation errors. Quality:SDOH Health Related Social Needs: No Data to Display PFSH All Active Problems (Updated 11/17/24 @ 00:16 by Gio Sparrow DO) Corneal rust ring of right eye (Acute) Foreign body of external eye, right (Acute) Encounter for screening colonoscopy (Acute) Tubulovillous adenoma (Acute ~2012) 01/2024-recall 5 yrs Cervical kyphosis (Acute) Hyperlipidemia, unspecified (Acute 07/02/12) Medical History Tubular adenoma of colon (~01/2024) Hyperplastic colon polyp (~01/2024) Adenoma of large intestine (04/05/13) 03/2013 colonoscopy (tubular adenoma) Surgical History H/O colonoscopy with polypectomy Status post Achilles tendon repair (~2007) [facility] Family History Father Colon cancer Mother Cancer Breast/lung/throat ?primary Social History Smoking/Tobacco Use Status: Never Smoking risk assessment performed?: Yes Alcohol Intake: current Alcohol Intake frequency: 3 or more drinks per day Alcohol type: beer and hard liquor Details: 3-5 mixed drinks with liquor/ day Drug use: Occasionally Substance use type: marijuana Adopted: No Household members: none Housing: house Do you need help understanding health information?: Rarely current occupation: [employer] Sexually active: No Do you think of yourself as: straight/heterosexual Current gender identity: male What is your relationship status?: Panel score (0-1 are the most socially isolated patients): 0 Do you feel safe at home: Yes Do you feel safe in your relationship?: Yes PAWSS Have you Been Recently Intoxicated or Drunk Within the Last 30 days?: No Have you Ever Experienced Previous Episodes of Alcohol Withdrawal?: No Have you ever Experienced Withdrawal Seizures?: No Have you ever Experienced Delirium Tremens(DT)s?: No Have you ever undergone Alcohol Rehabilitation Treatment (i.e, inpt ot outpatient treatment programs)?: No Have you ever Experienced Blackouts?: No Have you ever Combined Alcohol with other Downers within the last 90 days?: No Have you ever Combined Alcohol with any other Substance of Abuse during the last 90 days?: No Positive Blood Alcohol level on Presentation? [PCS.BAL]: No Evidence of Increased Autonomic Activity (i.e. HR>120, tremor, sweating, agitation, nausea)?: No Result: 0
[2024-11-16] MEDS: Erythromycin Ophth Oint 3.5 GM TUBE OD (23:31)
[2024-11-16] MEDS: Fluorescein STRIPS 100/BOX 1 MG OP (23:31)
[2024-11-16] MEDS: Diph,Pertuss(Acell),Tet Vac/Pf 0.5 ML SYR IM (23:32)
[2024-11-16] MEDS: Tetracaine 0.5% 4 ML BTL OP (23:32)
[2024-11-17 00:26] VITALS: RESP 18
== END 2024-11-17 00:26 | disposition home or self-care (01) ==
PROVIDERS: Emergency Provider Student in an Organized Health Care Education/Training Program
DX: T15.91XA Foreign body on external eye, part unspecified, right eye, initial encounter (principal); H18.891 Other specified disorders of cornea, right eye; X58.XXXA Exposure to other specified factors, initial encounter; Z23 Encounter for immunization
CPT/HCPCS: 65220; 90471; 90715; 99284; 99283